=== PATIENT | male | born 1950 | race Caucasian/White ===

== ENCOUNTER 2024-11-18 08:44 | Emergency (ER) | payer MEDICARE, SELFPAY ==
[2024-11-18 09:14] VITALS: BP 119/79; PULSE 106; RESP 19; TEMP 37.1; O2SAT 95; BMI 28.3
--- NOTE | 2024-11-18 09:30 | EKG_ITS ---
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1950 Requested By: Alis Dent ([facility]) Tamir Order Number: [id number] Reading MD: Alis Dent ([facility]) Tamir Measurements Intervals [place] Rate: 98 P: 33 SC: 156 QRS: -28 QRSD: 93 T: 40 QT: 336 QTc: 430 Interpretive Statements SINUS RHYTHM MINIMAL VOLTAGE CRITERIA FOR LVH, CONSIDER NORMAL VARIANT [MEETS CRITERIA IN ONE OF: R(aVL), S(V1), R(V5), R(V5/V6)+S(V1)] POSSIBLE ANTERIOR MYOCARDIAL INFARCTION , PROBABLY OLD [30 ms Q WAVE IN V3/V4, OR R < 0.2 mV IN V4] POSSIBLE INFERIOR MYOCARDIAL INFARCTION , PROBABLY OLD [30 ms Q WAVE IN II/aVF] Compared to ECG 02/03/2021 10:19:47 Myocardial infarct finding now present Sinus tachycardia no longer present T-wave abnormality no longer present /store/S0/[id number]/[id number].pdf
--- NOTE | 2024-11-18 09:31 | PD.EDRME ---
Rapid Medical Screening Exam E Arrival date/time: 11/18/24 08:44 74-year-old male here in clinic today with complaints of epigastric abdominal pain. Does report has been on a binge drinking of vodka. History of alcohol abuse disorder. I have greeted and performed a focused initial assessment of this patient. Initial appropriate labs ordered at this time. A comprehensive ED assessment and evaluation of the patient and analysis of all test and completion of medical decision making process will be conducted by additional ED provider. Chief Complaint: Abdominal Pain Time Seen by Provider: 11/18/24 08:54 Vital signs: Vital Signs Temperature 98.7 F 11/18/24 09:14 Pulse Rate 106 H 11/18/24 09:14 Respiratory Rate 19 11/18/24 09:14 Blood Pressure 119/79 11/18/24 09:14 Pulse Oximetry (%) 95 11/18/24 09:14 Oxygen Delivery Method Room Air 11/18/24 09:14
[2024-11-18] MEDS: LIDOCAINE VISCOUS 2% 15 ML UDC PO (09:38)
[2024-11-18] MEDS: MG HYD/AL HYD/SIME (Maalox Reg) SUSP 30 ML UDC PO (09:38)
[2024-11-18 10:26] LABS: Basophils # (Auto) 0.1 Thou/mm3 (0.0-0.2); Basophils % (Auto) 1 % (0-2.5); Eosinophils # (Auto) 0.2 Thou/mm3 (0.0-0.5); Eosinophils % (Auto) 2 % (0-10); Hematocrit 44.8 % (41.0-53.0); Hemoglobin 15.5 g/dL (13.5-16.0); Immature Granulocytes Auto 0.03 Thou/mm3 (0.00-0.00); Lymphocytes # (Auto) 2.4 Thou/mm3 (1.0-4.8); Lymphocytes % (Auto) 25 % (10-50); Mean Corpuscular HGB Conc 34.6 g/dl (31.0-37.0); Mean Corpuscular Hemoglobin 31.5 pg (25.0-35.0); Mean Corpuscular Volume 91 fL (80-100); Monocytes # (Auto) 1.2 Thou/mm3 (0.0-0.8); Monocytes % (Auto) 12 % (0-12); Neutrophils # (Auto) 5.7 Thou/mm3 (1.8-7.7); Neutrophils % (Auto) 60 % (37-80); Nucleated Red Blood Cell # 0.00 Thou/mm3 (0.00-0.00); Nucleated Red Blood Cell % 0 /100 WBC (0); Platelet Count 161 Thou/mm3 (140-440); RDW Standard Deviation 48.0 fL (35.1-43.9); Red Blood Count 4.92 Miln/mm3 (4.50-5.90); White Blood Count 9.5 Thou/mm3 (3.8-10.6)
[2024-11-18 10:59] LABS: Alanine Aminotransferase 22 U/L (10-49); Albumin, Serum 4.0 gm/dL (3.4-4.8); Albumin/Globulin Ratio 1.5 (1.2-2.2); Alcohol, Blood Medical < 10.0 mg/dL (0-10.0); Alkaline Phosphatase 88 U/L (46-116); Anion Gap 13 (7-16); Aspartate Amino Transferase 33 U/L (0-34); BUN/Creatinine Ratio 12 Ratio (12-20); Bilirubin,Total 1.6 mg/dL (0.3-1.2); Blood Urea Nitrogen 12 mg/dL (9-23); Calcium 9.4 mg/dL (8.3-10.6); Calcium (Corrected) 9.4 mg/dL (8.5-10.1); Carbon Dioxide 28.5 mMol/L (20.0-31.0); Chloride 99 mMol/L (98-107); Creatinine (Component) 1.0 mg/dL (0.6-1.3); Estimated Creatinine Clearance 64.4 mL/min (>60); Globulin 2.7 gm/dL (2.3-3.5); Glucose 99 mg/dL (74-106); Lipase 36 U/L (12-53); Magnesium 1.3 mg/dL (1.6-2.6); Osmolality,Calculated 279 (275-295); Potassium 2.9 mMol/L (3.4-5.1); Sodium 140 mMol/L (136-145); Total Protein 6.7 gm/dL (5.7-8.2); Troponin I < 0.020 ng/mL (0.0-0.045); eGFR > 60 See Note
[2024-11-18 11:01] LABS: INR 1.1 (0.9-1.3); Prothrombin Time 12.2 Seconds (9.0-12.2)
[2024-11-18 12:24] VITALS: BP 116/69; PULSE 78; RESP 19; TEMP 36.7; O2SAT 98
--- NOTE | 2024-11-18 12:49 | PD.EDABDPN ---
ED Abdominal Pain RME/HPI General Chief Complaint: Abdominal Pain Stated complaint: Drank Vodka and has abdominal pain Time seen by provider: 11/18/24 08:54 Arrival date/time: 11/18/24 08:44 Limitations: no limitations RME / HPI RME / HPI narrative: 11/18/24 08:44 74-year-old male here in clinic today with complaints of epigastric abdominal pain. Does report has been on a binge drinking of vodka. History of alcohol abuse disorder. I have greeted and performed a focused initial assessment of this patient. Initial appropriate labs ordered at this time. A comprehensive ED assessment and evaluation of the patient and analysis of all test and completion of medical decision making process will be conducted by additional ED provider. DR. AVILA MAIN ED EVALUATION: 74 year old male presents to the Emergency Department with complaint of epigastric abdominal pain ongoing for the past few days following vodka consumption on . He denies vomiting. Admits to increased alcohol intake recently, consuming a couple pints due to depression. He also mentions that his a couple years ago. Denies smoking. Normal gait; reports he can walk up to 5 blocks. Related Data Previous Rx's ?Medication ?Instructions ?Recorded folic acid 1 mg tablet 1 mg PO BID #30 tabs 02/07/21 multivitamin-iron 9 mg-folic acid 1 tab PO QDAY #30 tabs 02/07/21 400 mcg-calcium and minerals tablet (Thera M Plus (ferrous fumarate)) thiamine mononitrate (vit B1) 100 100 mg PO BID #30 tabs 02/07/21 mg tablet (Vitamin B-1 (mononitrate)) omeprazole 40 mg capsule,delayed 40 mg PO QDAY pain #30 caps 11/18/24 release Allergies Allergy/AdvReac Type Severity Reaction Status Date / Time No Known Allergies Allergy Verified 11/18/24 08:48 Review of Systems Review of Systems Systems Reviewed: All systems reviewed, normal except as documented Past Medical History Social History SMOKING STATUS: Former smoker SUBSTANCE USE: does not use ALCOHOL: Current ED Exam General Limitations: Present no limitations General appearance: Present alert and in no apparent distress Head Head exam: Present atraumatic, normocephalic and normal inspection Eye Eye exam: Present normal appearance, PERRL and EOMI ENT ENT exam: Present normal exam, normal oropharynx and mucous membranes moist Neck Neck exam: Present normal inspection, full ROM and trachea midline Chest Chest inspection: Present normal inspection and symmetric chest wall rise Respiratory Respiratory exam: Present normal lung sounds bilaterally Cardiovascular Cardiovascular exam: Present regular rate, normal rhythm and normal heart sounds Abdominal Exam Abdominal exam: Present soft and normal bowel sounds Extremities Exam Extremities exam: Present normal inspection and full ROM Back Exam Back exam: Present normal inspection and full ROM Neurological Exam Neurological exam: Present alert, oriented X3 and CN II-XII intact Psychiatric Psychiatric exam: Present normal affect and normal mood Skin Skin exam: Present warm, dry, intact and normal color Course Quality Measures none Orders Category Date Time Status EKG (ED ONLY) *Do not use* NOW Care 11/18/24 09:30 Completed NPO STAT Care 11/18/24 09:30 Active Occult Blood,Stool (Nursing) NOW Care 11/18/24 09:30 Active EKG (ED Only) Stat Exams 11/18/24 09:30 Draft CBC Stat Lab 11/18/24 10:00 Completed Comprehensive Metabolic Panel Stat Lab 11/18/24 10:00 Completed Drug Screen,Urine Stat Lab 11/18/24 09:31 Ordered Lipase Stat Lab 11/18/24 10:00 Completed FLOYD [Alcohol, Blood Medical] Stat Lab 11/18/24 10:00 Completed Magnesium Stat Lab 11/18/24 10:00 Completed Prothrombin Time with INR Stat Lab 11/18/24 10:00 Completed Troponin I Stat Lab 11/18/24 10:00 Completed Urinalysis Stat Lab 11/18/24 09:30 Ordered Folic Acid Med 11/18/24 12:51 Discontinued 1 mg PO X1 ONE Lidocaine 2% Viscous [Xylocaine 2% Viscous] Med 11/18/24 09:30 Discontinued 15 ml PO X1 ONE Ondansetron Inj [Zofran Inj] Med 11/18/24 12:54 Discontinued 4 mg IVP X1 ONE POTASSIUM CHL 10 mEq IVPB [Kcl Ivpb] Med 11/18/24 12:55 Active 10 meq in 100 ml IV Q1H Pantoprazole Inj [Protonix Inj] Med 11/18/24 12:51 Discontinued 40 mg IVP X1 ONE Potassium Chloride [K-Dur] Med 11/18/24 12:54 Discontinued 40 meq PO X1 ONE Potassium Chloride [K-Dur] Med 11/18/24 14:41 Discontinued 40 meq PO X1 ONE Sodium Chloride 0.9% 1000 ml [Ns] 1,000 ml Med 11/18/24 12:51 Discontinued IV 999 mls/hr Thiamine [Vitamin B-1] Med 11/18/24 12:51 Discontinued 100 mg PO X1 ONE mg Hyd/Al Hyd/Romelia Susp [Maalox Susp] Med 11/18/24 09:30 Discontinued 30 ml PO X1 ONE Vital Signs Vital signs: Vital Signs Temperature 98.7 F 11/18/24 09:14 Pulse Rate 106 H 11/18/24 09:14 Respiratory Rate 19 11/18/24 09:14 Blood Pressure 119/79 11/18/24 09:14 Pulse Oximetry (%) 95 11/18/24 09:14 Oxygen Delivery Method Room Air 11/18/24 09:14 Abdominal Pain MDM MDM Narrative MDM Narrative:: I, Renata Vega, am scribing for and in the presence of Dr. Avila. Plan to discharge with gastritis, depression, and alcohol use. Patient also has hypokalemia. Patient denies any PCP so gave the resident's clinic information in his discharge papers. Patient data External records reviewed:: [facility] previous records Clinical information provided by:: patient Social determinants that could affect healthcare access:: alcohol use Patient has the following chronic illnesses:: Denies any PMHx, surgeries, daily medications, or known allergies. How is presenting disease/condition affected by chronic disease/condition?: no chronic disease Evaluation data The following diagnostics were reviewed and interpreted by me:: lab results and EKG tracing(s) Lab and/or radiology exams considered but not ordered:: none Interpretation Summary: Hypokalemia, see narrative above. My interpretation: EKG performed at 0932 hours, sinus rhythm, rate 98, no acute changes, no STEMI Medications / Prescriptions Medications or Prescriptions considered but not ordered:: none Medication administrations:: Medication Administration History Potassium Chloride (Kcl Ivpb) 10 meq in 100 mls @ 100 mls/hr IV Q1H BEHZAD Stop: 11/18/24 15:54 Last Admin: 11/18/24 14:35 Dose: 100 mls/hr Documented By: Infusion: 11/18/24 14:25 Dose: Infused Documented By: Admin: 11/18/24 13:20 Dose: 100 mls/hr Documented By: RODRIGO Discontinued Medications Al Hydrox/Mg Hydrox/Simethicone (Mg Hyd/Al Hyd/Romelia (Maalox Reg) Susp 30 Ml Udc) 30 ml PO X1 ONE Stop: 11/18/24 09:31 Last Admin: 11/18/24 09:38 Dose: 30 ml Documented By: ISAK Folic Acid (Folic Acid 1 Mg Tablet) 1 mg PO X1 ONE Stop: 11/18/24 12:52 Last Admin: 11/18/24 13:19 Dose: 1 mg Documented By: RODRIGO Sodium Chloride (Ns) 1,000 mls @ 999 mls/hr IV .Q1H1M ONE Stop: 11/18/24 13:51 Last Infusion: 11/18/24 14:20 Dose: Infused Documented By: Admin: 11/18/24 13:19 Dose: 999 mls/hr Documented By: RODRIGO Lidocaine HCl (Lidocaine Viscous 2% 15 Ml Udc) 15 ml PO X1 ONE Stop: 11/18/24 09:31 Last Admin: 11/18/24 09:38 Dose: 15 ml Documented By: ISAK Ondansetron HCl (Ondansetron Inj 2 Mg/Ml Inj 2 Ml) 4 mg IVP X1 ONE; Protocol Stop: 11/18/24 12:55 Last Admin: 11/18/24 13:19 Dose: 4 mg Documented By: RODRIGO Pantoprazole Sodium (Pantoprazole Inj 40 Mg Vial) 40 mg IVP X1 ONE Stop: 11/18/24 12:52 Last Admin: 11/18/24 13:19 Dose: 40 mg Documented By: RODRIGO Potassium Chloride (Potassium Chloride 20 Meq Tabcr) 40 meq PO X1 ONE Stop: 11/18/24 12:55 Last Admin: 11/18/24 13:22 Dose: Not Given Documented By: RODRIGO Non-Admin Reason: Unable to Swallow Potassium Chloride (Potassium Chloride 20 Meq Tabcr) 40 meq PO X1 ONE Stop: 11/18/24 14:42 Thiamine HCl (Thiamine 100 Mg Tablet) 100 mg PO X1 ONE Stop: 11/18/24 12:52 Last Admin: 11/18/24 13:19 Dose: 100 mg Documented By: RODRIGO see above Consultations Consultation(s) initiated? (list below): No Diagnosis Differential diagnosis abdominal pain: other (acute pancreatitis, gastritis, and peptic ulcer disease) Most likely diagnosis given after review of the tests above:: Gastritis Depression Alcohol use Hypokalemia Admission Indicated Admission indicated?: not indicated Admission Request Was there a request for admission?: No Disposition Plan Disposition Plan: Discharge Discharge Attestation Discharge Attestation: The patient and all family members were given an opportunity to ask questions and understood the discharge instructions. Discharge instructions specifically effects, indications for sooner follow up or return to the emergency department, and the expected course of current diagnosis. Patient condition: Stable Discharge Plan Plan Patient Disposition: HOME (Self Care) Patient condition on transfer: Stable Prescriptions/Referrals Prescriptions/Med Rec: New omeprazole 40 mg capsule,delayed release(DR/EC) 40 mg PO QDAY MDD 1 Qty: 30 0RF No Action folic acid 1 mg Tablet 1 mg PO BID Qty: 30 0RF Thera M Plus (ferrous fumarat) 9 mg iron-400 mcg Tablet 1 tab PO QDAY Qty: 30 0RF thiamine mononitrate (vit B1) [Vitamin B-1 (mononitrate)] 100 mg Tablet 100 mg PO BID Qty: 30 0RF Referrals: [facility] [Outside] - In 1 week No Primary/Family,Physician [Primary Care Provider] - In 1 week Problem List Clinical Impression: Gastritis, Depression, Alcohol use, Hypokalemia Patient/Caregiver Discharge Instructions Diet Instructions: Please eat potassium-rich foods. Education Materials: ED Potassium-Rich Foods Additional Instructions: Please follow-up with your primary care physician within 2-3 days. Return to the Emergency Department as needed. Print Language: Cook Islander Stand Alone Forms: [facility] Info., Patient Portal Info Letter
[2024-11-18] MEDS: SODIUM CHLORIDE 0.9% 1000 ML 1,000 ML 999 ML IV (13:19)
[2024-11-18] MEDS: THIAMINE 100 MG TABLET PO (13:19)
[2024-11-18] MEDS: ONDANSETRON INJ 2 MG/ML INJ 2 ML 4 MG IVP (13:19)
[2024-11-18] MEDS: FOLIC ACID 1 MG TABLET PO (13:19)
[2024-11-18] MEDS: POTASSIUM CHL 10 mEq IVPB 10 MEQ/100 ML BAG 100 MEQ IV ×3 (13:20→15:47)
[2024-11-18 14:09] VITALS: BP 123/91; PULSE 80; RESP 20; TEMP 36.8; O2SAT 96
[2024-11-18 16:01] VITALS: BP 129/81; PULSE 79; RESP 17; TEMP 36.6; O2SAT 96
[2024-11-18] MEDS: POTASSIUM CHLORIDE 10% 20 MEQ/15 ML UDC 40 MEQ PO (16:02)
[2024-11-18 17:09] VITALS: BP 128/87; PULSE 81; RESP 20; TEMP 36.6; O2SAT 97
== END 2024-11-18 17:12 | disposition home or self-care (01) ==
PROVIDERS: Nurse Practitioner Primary Care; Emergency Provider Family Medicine
DX: K29.70 Gastritis, unspecified, without bleeding (principal); F32.A Depression, unspecified; E87.6 Hypokalemia; F10.90 Alcohol use, unspecified, uncomplicated; R94.31 Abnormal electrocardiogram [ECG] [EKG]; Y90.0 Blood alcohol level of less than 20 mg/100 ml
CPT/HCPCS: 36415; 80053; 80307; 80320; 81001; 83690; 83735; 84484; 85025; 85610; 93005; 96365; 96375; 99284; J2405; J2470; J3480; J3490; J7030; A9270; G0480

== ENCOUNTER 2024-11-23 21:51 | Emergency (ER) | payer MEDICARE, MEDICAID, SELFPAY ==
[2024-11-23 21:54] VITALS: BP 121/81; PULSE 90; RESP 20; TEMP 36.6; O2SAT 96; BMI 27.3
[2024-11-23 22:00] VITALS: PULSE 96; RESP 18; O2SAT 93; BMI 27.3
[2024-11-23 23:34] VITALS: BP 121/80; PULSE 88; RESP 20; TEMP 36.8; O2SAT 96
--- NOTE | 2024-11-23 23:36 | PD.EDALCOH ---
ED Alcohol RME/HPI General Chief Complaint: Alcohol Stated Complaint: ALCOHOL INTOXICATION Time Seen by Provider: 11/23/24 23:37 Arrival date/time: 11/23/24 21:51 RME / HPI RME / HPI narrative: Dr. Robbins?s Main ED Evaluation: 74yo male [place] from home presents to the ED due to alcohol intoxication. Per EMS, patient was found to be vomiting on scene. Patient states I just don't feel well . When asked if he drank alcohol today, he notes I don't think I did . He denies any abdominal pain or any other associated symptoms. NKA. Related Data Previous Rx's ?Medication ?Instructions ?Recorded folic acid 1 mg tablet 1 mg PO BID #30 tabs 02/07/21 multivitamin-iron 9 mg-folic acid 1 tab PO QDAY #30 tabs 02/07/21 400 mcg-calcium and minerals tablet (Thera M Plus (ferrous fumarate)) thiamine mononitrate (vit B1) 100 100 mg PO BID #30 tabs 02/07/21 mg tablet (Vitamin B-1 (mononitrate)) omeprazole 40 mg capsule,delayed 40 mg PO QDAY pain #30 caps 11/18/24 release Allergies Allergy/AdvReac Type Severity Reaction Status Date / Time No Known Allergies Allergy Verified 11/23/24 23:45 Review of Systems Review of Systems Systems Reviewed: All systems reviewed, normal except as documented Past Medical History Past Medical History CARDIAC: Negative Cardiac Disorders or Congestive Heart Failure RESPIRATORY: Negative Chronic Obstructive Pulmonary Disease (COPD) or Asthma GENITOURINARY: Negative Renal Disease ENDOCRINE: Negative Diabetes Mellitus Type 1 or Diabetes Mellitus Type 2 HEMATOLOGIC: Negative Sickle Cell Disease Social History SMOKING STATUS: Former smoker SUBSTANCE USE: does not use ED Exam Narrative Physical exam: General Patient is alert and oriented elderly appearing. HEENT shows soft tissue mass in the mid forehead. No cephalhematoma. Heart is regular rate and rhythm lungs clear to station equal bilaterally abdomen soft masses present nondistended nontender neurologic exam patient is alert and oriented x 3 no focal motor deficit. Course Quality Measures none Orders Category Date Time Status CBC Stat Lab 11/23/24 23:30 Completed CMP [Comprehensive Metabolic Panel] Stat Lab 11/23/24 23:30 Completed Lipase Stat Lab 11/23/24 23:30 Completed Vital Signs Vital signs: Vital Signs Temperature 97.8 F 11/23/24 21:54 Pulse Rate 90 11/23/24 21:54 Respiratory Rate 20 11/23/24 21:54 Blood Pressure 121/81 11/23/24 21:54 Pulse Oximetry (%) 96 11/23/24 21:54 Oxygen Delivery Method Nasal Cannula 11/23/24 21:54 Oxygen Flow Rate 2 11/23/24 21:54 Discharge Plan Plan Patient Disposition: HOME (Self Care) Prescriptions/Referrals Prescriptions/Med Rec: No Action folic acid 1 mg Tablet 1 mg PO BID Qty: 30 0RF Thera M Plus (ferrous fumarat) 9 mg iron-400 mcg Tablet 1 tab PO QDAY Qty: 30 0RF thiamine mononitrate (vit B1) [Vitamin B-1 (mononitrate)] 100 mg Tablet 100 mg PO BID Qty: 30 0RF omeprazole 40 mg capsule,delayed release(DR/EC) 40 mg PO QDAY MDD 1 Qty: 30 0RF Referrals: Denver Jerome MD [Primary Care Provider] - In 1 week Problem List Clinical Impression: Alcohol abuse Patient/Caregiver Discharge Instructions Additional Instructions: Decrease your alcohol intake in the future. Print Language: Japanese Stand Alone Forms: [employer] Info., Patient Portal Info Letter Alcohol MDM Narrative MDM Narrative: Scribe Attestation: 11/23/24 - Key Christian am scribing for and in the presence of Dr. Robbins. I interpreted all labs. There was no significant abnormality. Lipase was not elevated. Patient is stable for discharge. Patient data External records reviewed:: [facility] previous records (Per chart review, patient was seen here on 11/18/24 for alcohol use disorder.) and EMS form Clinical information provided by:: none Social determinants that could affect healthcare access:: alcohol use Patient has the following chronic illnesses:: none How is presenting disease/condition affected by chronic disease/condition?: no chronic disease Evaluation data The following diagnostics were reviewed and interpreted by me:: lab results Lab and/or radiology exams considered but not ordered:: none Interpretation Summary: See MDM. Medications / Prescriptions Medications or Prescriptions considered but not ordered:: none Medication administrations:: none Consultations Consultation(s) initiated? (list below): No Diagnosis Differential diagnosis alcohol: alcohol intoxication and other (dehydration, electrolyte abnormality) Most likely diagnosis given after review of the tests above:: see clinical impression below Admission Indicated Admission indicated?: not indicated Admission Request Was there a request for admission?: No Disposition Plan Disposition Plan: Discharge Discharge Attestation Discharge Attestation: The patient and all family members were given an opportunity to ask questions and understood the discharge instructions. Discharge instructions specifically effects, indications for sooner follow up or return to the emergency department, and the expected course of current diagnosis. Patient condition: Stable
[2024-11-23 23:54] LABS: Basophils # (Auto) 0.0 Thou/mm3 (0.0-0.2); Basophils % (Auto) 0 % (0-2.5); Eosinophils # (Auto) 0.0 Thou/mm3 (0.0-0.5); Eosinophils % (Auto) 0 % (0-10); Hematocrit 43.0 % (41.0-53.0); Hemoglobin 15.1 g/dL (13.5-16.0); Immature Granulocytes Auto 0.03 Thou/mm3 (0.00-0.00); Lymphocytes # (Auto) 1.5 Thou/mm3 (1.0-4.8); Lymphocytes % (Auto) 16 % (10-50); Mean Corpuscular HGB Conc 35.1 g/dl (31.0-37.0); Mean Corpuscular Hemoglobin 31.8 pg (25.0-35.0); Mean Corpuscular Volume 91 fL (80-100); Monocytes # (Auto) 1.3 Thou/mm3 (0.0-0.8); Monocytes % (Auto) 14 % (0-12); Neutrophils # (Auto) 6.5 Thou/mm3 (1.8-7.7); Neutrophils % (Auto) 69 % (37-80); Nucleated Red Blood Cell # 0.00 Thou/mm3 (0.00-0.00); Nucleated Red Blood Cell % 0 /100 WBC (0); Platelet Count 239 Thou/mm3 (140-440); RDW Standard Deviation 47.6 fL (35.1-43.9); Red Blood Count 4.75 Miln/mm3 (4.50-5.90); White Blood Count 9.4 Thou/mm3 (3.8-10.6)
[2024-11-23 23:57] VITALS: BP 128/78; PULSE 89; RESP 17; TEMP 36.5; O2SAT 95
[2024-11-24 00:05] VITALS: BP 129/79; PULSE 31; RESP 26; O2SAT 95
[2024-11-24 00:12] LABS: Alanine Aminotransferase 19 U/L (10-49); Albumin, Serum 3.6 gm/dL (3.4-4.8); Albumin/Globulin Ratio 1.5 (1.2-2.2); Alkaline Phosphatase 71 U/L (46-116); Anion Gap 16 (7-16); Aspartate Amino Transferase 29 U/L (0-34); BUN/Creatinine Ratio 17 Ratio (12-20); Bilirubin,Total 0.5 mg/dL (0.3-1.2); Blood Urea Nitrogen 17 mg/dL (9-23); Calcium 8.1 mg/dL (8.3-10.6); Calcium (Corrected) 8.4 mg/dL (8.5-10.1); Carbon Dioxide 22.5 mMol/L (20.0-31.0); Chloride 105 mMol/L (98-107); Creatinine (Component) 1.0 mg/dL (0.6-1.3); Estimated Creatinine Clearance 60.8 mL/min (>60); Globulin 2.4 gm/dL (2.3-3.5); Glucose 122 mg/dL (74-106); Lipase 32 U/L (12-53); Osmolality,Calculated 287 (275-295); Potassium 3.6 mMol/L (3.4-5.1); Sodium 143 mMol/L (136-145); Total Protein 6.0 gm/dL (5.7-8.2); eGFR > 60 See Note
[2024-11-24 00:30] VITALS: BP 127/77; PULSE 86; RESP 24; O2SAT 95
[2024-11-24] MEDS: ONDANSETRON INJ 2 MG/ML INJ 2 ML 4 MG IVP (00:42)
== END 2024-11-24 01:23 | disposition home or self-care (01) ==
PROVIDERS: Emergency Provider Emergency Medicine; PCP Family Medicine
DX: F10.229 Alcohol dependence with intoxication, unspecified (principal); I49.1 Atrial premature depolarization
CPT/HCPCS: 36415; 80053; 83690; 85025; 96374; 99283; J2405